=== PATIENT | male | born 1985 | race Caucasian/White ===

== ENCOUNTER 2016-09-19 13:22 | Emergency (ER) | payer OTHER ==
[~2016-09-19] VITALS: Ht 188 cm; Wt 91.7 kg
[~2016-09-19 13:22] MED LIST: AERONEB GO NEB1 EACH MC; PREDNISONE20 MG PO; PROVENTIL,2.5 MG/3 M IH; SYMBICORT60 INHALA1 IH
[2016-09-19 14:15] LABS: MCH 27.8 PG (29.0-34.0); MCHC 34.5 G/DL (30.0-36.0); MCV 80.6 FL (86-99); MEAN PLAT.VOLUME 9.8 uM^3 (9.0-12.4); PLATELET COUNT 439 K/uL (156-360); RBC DIS.WIDTH-CV 16.9 % (11.8-14.6); RBC DIS.WIDTH-SD 49.2 % (39-53); RED BLOOD COUNT 5.21 M/uL (4.00-5.50); WHITE BLOOD COUNT 14.7 K/uL (4.1-10.2)
[2016-09-19 15:29] LABS: ANION GAP 9 MEQ/L (2-14); CHLORIDE 105 MEQ/L (99-109); POTASSIUM 4.2 MEQ/L (3.7-5.4); SAMPLE HEMOLYSIS CHECK 0; SAMPLE ICTERIC CHECK 0; SAMPLE LIPEMIA CHECK 0; SODIUM 139 MEQ/L (136-147)
[2016-09-19 15:34] LABS: GFR ESTIMATE (CALCULATED) > 59 mL/min/; GLUCOSE 89 mg/dL (70-99); UREA NITROGEN (BUN) 13 mg/dL (9-23)
[2016-09-19 15:40] LABS: TROP-I INTERPRETATION NEGATIVE; TROPONIN-I < 0.01 ng/mL (0.0-0.30)
[2016-09-19 15:46] LABS: D-DIMER ELISA 0.67 mg/L FEU (< 0.57)
[2016-09-19 18:17] LABS: PROTHROMBIN TIME 10.3 (9.2-11.2); PTT 27.7 (25-32)
[2016-09-19 19:26] VITALS: BP 128/87
== END 2016-09-19 19:28 | disposition short-term general hospital (02) ==
LOC: EME 13:22
PROVIDERS: Emergency Medicine
DX: I26.99 Other pulmonary embolism without acute cor pulmonale (principal)
CPT/HCPCS: 71010; 71275; 80048; 80048 91; 84484; 85027; 85379; 85610; 85730; 93005; 99281; 99285; J2270; J7030

== ENCOUNTER 2016-09-20 13:45 | Inpatient (IN) | payer OTHER ==
[~2016-09-20] VITALS: Ht 188 cm; Wt 88.4 kg
[2016-09-20 19:20] VITALS: BP 163/89
[2016-09-20 22:13] LABS: MCH 27.7 PG (29.0-34.0); MCV 81.2 FL (86-99); MEAN PLAT.VOLUME 9.3 uM^3 (9.0-12.4); PLATELET COUNT 443 K/uL (156-360); RBC DIS.WIDTH-CV 16.8 % (11.8-14.6); RBC DIS.WIDTH-SD 50.3 % (39-53); RED BLOOD COUNT 5.17 M/uL (4.00-5.50)
[2016-09-20 22:28] LABS: PROTHROMBIN TIME 10.3 (9.2-11.2); PTT 27.9 (25-32)
[2016-09-20 22:58] LABS: TROP-I INTERPRETATION NEGATIVE; TROPONIN-I < 0.01 ng/mL (0.0-0.30)
[2016-09-20 23:16] LABS: ANION GAP 10 MEQ/L (2-14); CHLORIDE 101 MEQ/L (99-109); POTASSIUM 3.9 MEQ/L (3.7-5.4); SAMPLE HEMOLYSIS CHECK 0; SAMPLE ICTERIC CHECK 0; SAMPLE LIPEMIA CHECK 0; SODIUM 137 MEQ/L (136-147); TOTAL BILIRUBIN 0.7 MG/DL (0.0-1.0)
[2016-09-20 23:22] LABS: ALKALINE PHOSPHATASE 84 IU/L (3-129); GFR ESTIMATE (CALCULATED) > 59 mL/min/; GLUCOSE 108 mg/dL (70-99); UREA NITROGEN (BUN) 11 mg/dL (9-23)
[2016-09-20 23:25] LABS: ADD MIUA? NO; BILIRUBIN NEGATIVE; BLOOD NEGATIVE; COLOR STRAW ((YELLOW)); GLUCOSE (STRIP) NEGATIVE; KETONES NEGATIVE; LEUKOCYTES NEGATIVE; NITRITE NEGATIVE; PROTEIN (STRIP) NEGATIVE; SPECIFIC GRAVITY 1.006 (1.000-1.030); UCUL ADDED? NO; UROBILINOGEN 0.2 MG/DL (0.2-1.0)
[2016-09-20 23:28] VITALS: BP 117/71
[2016-09-21 03:47] VITALS: BP 129/78
[2016-09-21 05:50] LABS: HEMATOCRIT 39.9 % (38.0-50.0); MCH 28.3 PG (29.0-34.0); MCHC 35.1 G/DL (30.0-36.0); MCV 80.6 FL (86-99); MEAN PLAT.VOLUME 9.5 uM^3 (9.0-12.4); PLATELET COUNT 415 K/uL (156-360); RBC DIS.WIDTH-CV 16.6 % (11.8-14.6); RBC DIS.WIDTH-SD 48.5 % (39-53); RED BLOOD COUNT 4.95 M/uL (4.00-5.50); WHITE BLOOD COUNT 16.8 K/uL (4.1-10.2)
[2016-09-21 05:54] LABS: INTER. NORMALIZED RATIO 1.1; PROTHROMBIN TIME 10.7 (9.2-11.2)
[2016-09-21 06:15] LABS: TROP-I INTERPRETATION NEGATIVE; TROPONIN-I < 0.01 ng/mL (0.0-0.30)
[2016-09-21 06:16] LABS: ALKALINE PHOSPHATASE 68 IU/L (3-129); ANION GAP 10 MEQ/L (2-14); CHLORIDE 103 MEQ/L (99-109); GFR ESTIMATE (CALCULATED) > 59 mL/min/; GLUCOSE 97 mg/dL (70-99); SAMPLE HEMOLYSIS CHECK 0; SAMPLE ICTERIC CHECK 0; SAMPLE LIPEMIA CHECK 0; SODIUM 138 MEQ/L (136-147); TOTAL BILIRUBIN 0.8 MG/DL (0.0-1.0); UREA NITROGEN (BUN) 9 mg/dL (9-23)
[2016-09-21 06:54] VITALS: BP 114/73
[2016-09-21 09:28] LABS: HEMATOCRIT 42.4 % (38.0-50.0); MCH 28.9 PG (29.0-34.0); MCHC 35.1 G/DL (30.0-36.0); MCV 82.2 FL (86-99); MEAN PLAT.VOLUME 9.6 uM^3 (9.0-12.4); PLATELET COUNT 428 K/uL (156-360); RBC DIS.WIDTH-CV 17.2 % (11.8-14.6); RBC DIS.WIDTH-SD 50.8 % (39-53); RED BLOOD COUNT 5.16 M/uL (4.00-5.50)
[2016-09-21 10:01] LABS: FIBRINOGEN 479 MG/DL (160-450)
[2016-09-21 10:41] VITALS: BP 115/78
[2016-09-21 11:23] LABS: FACTOR Xa INHIBITION (LMWH) 0.3 IU/mL
[2016-09-21 13:27] LABS: TROP-I INTERPRETATION NEGATIVE; TROPONIN-I < 0.01 ng/mL (0.0-0.30)
[2016-09-21 15:28] VITALS: BP 122/65
[2016-09-21 19:20] VITALS: BP 130/69
[2016-09-21 23:19] VITALS: BP 124/75
[2016-09-22 03:22] VITALS: BP 126/72
[2016-09-22 06:18] LABS: BASOPHIL COUNT 0.1 K/uL (0-0.1); EOSINOPHIL (%) 5.4 % (0-5); EOSINOPHIL COUNT 0.9 K/uL (0-0.3); HEMATOCRIT 48.3 % (38.0-50.0); IMMATURE GRANULOCYTE (%) 0.4 % (0.0-0.7); IMMATURE GRANULOCYTE COUNT 0.1 K/uL; LYMPHOCYTE COUNT 3.5 K/uL (1.0-2.8); MCH 27.5 PG (29.0-34.0); MCV 80.9 FL (86-99); MEAN PLAT.VOLUME 9.4 uM^3 (9.0-12.4); MONOCYTE (%) 12.7 % (3-12); MONOCYTE COUNT 2.1 K/uL (0-0.8); NEUTROPHIL (%) 59.9 % (45-76); PLATELET COUNT 469 K/uL (156-360); RBC DIS.WIDTH-CV 16.9 % (11.8-14.6); RBC DIS.WIDTH-SD 48.5 % (39-53); RED BLOOD COUNT 5.97 M/uL (4.00-5.50); WHITE BLOOD COUNT 16.6 K/uL (4.1-10.2)
[2016-09-22 06:29] LABS: INTER. NORMALIZED RATIO 1.1; PROTHROMBIN TIME 11.5 (9.2-11.2)
[2016-09-22 08:34] VITALS: BP 122/71
[2016-09-22 11:13] VITALS: BP 117/97
[2016-09-22 16:14] VITALS: BP 132/75
[2016-09-22 23:40] VITALS: BP 114/61
[2016-09-23 06:50] VITALS: BP 122/63
[2016-09-23 07:13] LABS: INTER. NORMALIZED RATIO 1.2; PROTHROMBIN TIME 12.4 (9.2-11.2)
[2016-09-23] MEDS ORDERED: LEVOFLOXACIN750 MG PO (10:11)
[2016-09-23] MEDS ORDERED: LOVENOX80 MG/0.8 SC (10:11)
[2016-09-23] MEDS ORDERED: ENDOCET 5-3251 EACH PO (10:14)
[2016-09-23] MEDS ORDERED: COUMADIN10 MG PO (10:31)
[2016-09-23] MEDS ORDERED: COUMADIN7.5 MG PO (10:31)
[2016-09-23 14:13] LABS: Protein S, Free 106 % normal (57-171)
[2016-09-24 15:32] LABS: ADD PTT REFLEX? Y; DRVVT Mixing Study Interp Not Indicated (()); PROTEIN C FUNCTIONAL ACTIVITY+ 91 % (70-180); PTT-LA 44 sec (<=40); PTT-LA Reflex Has been added (()); Thrombosis Consult Level Limited (()); dRVVT Screen 34 sec (<=45)
[2016-09-25 18:19] LABS: HGBE Erythrocyte Cnt 5.26 Mill/uL (4.20-5.80); HGBE Hematocrit 44.6 % (38.5-50.0); HGBE Hemoglobin 14.5 g/dL (13.2-17.1); HGBE MCH 27.6 pg (27.0-33.0); HGBE MCV 84.8 FL (80.0-100.0); HGBE RDW 17.7 % (11.0-15.0)
[2016-09-27 09:11] LABS: ANTITHROMBIN III ACTIVITY+ 61 % activi (80-120)
== END 2016-09-23 12:56 | DRG 175 ==
LOC: 5SOUTH 13:45 → 5EAST 18:43
PROVIDERS: Anesthesiology; Hospitalist; Internal Medicine
DX: I26.99 Other pulmonary embolism without acute cor pulmonale (principal); Z90.81 Acquired absence of spleen; J45.909 Unspecified asthma, uncomplicated; D72.829 Elevated white blood cell count, unspecified; D57.3 Sickle-cell trait; J18.9 Pneumonia, unspecified organism; J90 Pleural effusion, not elsewhere classified; J98.11 Atelectasis; Z79.01 Long term (current) use of anticoagulants; Z88.6 Allergy status to analgesic agent
CPT/HCPCS: 71010; 71020; 80053; 81003; 81240 90; 81241 90; 83021 90; 83090 90; 84484; 85025; 85027; 85240 90; 85300 90; 85303 90; 85305 90; 85306 90; 85307 90; 85384; 85520; 85597 90; 85610; 85613 90; 85730; 85730 90; 86038; 86140; 86146 90; 86147 90; 87040; 93005; 93970; 94640; 94640 76; 99202; J1650; J2270; J7030

== ENCOUNTER → 2016-10-11 | Outpatient (CLI) | payer OTHER ==
[~2016-10-11] MED LIST changes: +COUMADIN10 MG PO; +COUMADIN6 MG PO; +COUMADIN7.5 MG PO; +ENDOCET 5-3251 EACH PO; +LEVOFLOXACIN750 MG PO; +LOVENOX80 MG/0.8 SC; +QVAR 40 MCG IN7.3 GM IH
[2016-10-11 11:34] LABS: BASOPHIL COUNT 0.1 K/uL (0-0.1); EOSINOPHIL COUNT 1.9 K/uL (0-0.3); HEMATOCRIT 42.9 % (38.0-50.0); IMMATURE GRANULOCYTE (%) 0.2 % (0.0-0.7); INSTRUMENT ABS NEUTROPHIL CT 4.6 K/uL; LYMPHOCYTE COUNT 4.2 K/uL (1.0-2.8); MCH 27.5 PG (29.0-34.0); MCHC 34.3 G/DL (30.0-36.0); MCV 80.3 FL (86-99); MEAN PLAT.VOLUME 8.9 uM^3 (9.0-12.4); MONOCYTE (%) 8.7 % (3-12); NEUTROPHIL (%) 38.6 % (45-76); NEUTROPHIL COUNT 4.6 K/uL (1.8-6.4); PLATELET COUNT 585 K/uL (156-360); RBC DIS.WIDTH-CV 16.4 % (11.8-14.6); RBC DIS.WIDTH-SD 47.7 % (39-53); RED BLOOD COUNT 5.34 M/uL (4.00-5.50); WHITE BLOOD COUNT 11.8 K/uL (4.1-10.2)
== END | disposition home or self-care (01) ==
LOC: AMB 09:00
PROVIDERS: Anesthesiology
DX: D68.51 Activated protein C resistance (principal); D57.3 Sickle-cell trait; Z86.711 Personal history of pulmonary embolism; Z79.01 Long term (current) use of anticoagulants; R07.9 Chest pain, unspecified; R05 Cough
CPT/HCPCS: 71020; 85025; 99214

== ENCOUNTER 2017-11-15 13:07 | Emergency (ER) | payer SELFPAY ==
[~2017-11-15] VITALS: Ht 188 cm; Wt 85.8 kg
[2017-11-15] MEDS ORDERED: PROVENTIL HFA6.7 GM IH (14:42)
[2017-11-15] MEDS ORDERED: TESSALON PERLE100 MG PO (14:42)
[2017-11-15] MEDS ORDERED: ADVAIR 100/501 DISK IH (14:42)
[2017-11-15] MEDS ORDERED: SYMBICORT60 INHALAT IH (14:52)
[2017-11-15] MEDS ORDERED: XARELTO20 MG PO (15:41)
[2017-11-15 16:44] VITALS: BP 140/72
== END 2017-11-15 16:45 | disposition home or self-care (01) ==
LOC: EME 13:07
DX: J06.9 Acute upper respiratory infection, unspecified (principal); Z86.711 Personal history of pulmonary embolism; J45.909 Unspecified asthma, uncomplicated; D57.3 Sickle-cell trait; D68.51 Activated protein C resistance; Z88.6 Allergy status to analgesic agent
CPT/HCPCS: 71046; 94640; 99281; 99284; J7512